=== PATIENT | male | born 1995 | race Caucasian/White ===

== ENCOUNTER 2017-02-23 15:00 | Emergency (ER) | payer MEDICAID ==
[2017-02-23 15:09] VITALS: BP 108/75; RESP 18; TEMP 98
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
--- NOTE | 2017-02-23 16:35 | C.PDOC ---
Time Seen by Provider: 02/23/17 15:56 Chief Complaint (Nursing): Abnormal Skin Integrity Past Medical History Vital Signs: Last Vital Signs Temp 98 F 02/23/17 15:05 Pulse 104 H 02/23/17 15:05 Resp 18 02/23/17 15:05 BP 108/75 02/23/17 15:05 Pulse Ox 98 02/23/17 15:05 Family History: States: Unknown Family Hx - Social History Hx Alcohol Use: Yes Hx Substance Use: No - Immunization History Hx Tetanus Toxoid Vaccination: Yes (2015) Hx Influenza Vaccination: No Hx Pneumococcal Vaccination: No ED Course And Treatment O2 Sat by Pulse Oximetry: 98 Disposition Counseled Patient/Family Regarding: Diagnosis, Need For Followup - Disposition Referrals: Yane Paulson [Medical Doctor] - Disposition: HOME/ ROUTINE Disposition Time: 16:33 Condition: IMPROVED Additional Instructions: Keep steri strips on; they will fall off by themselves. Follow up with your doctor. Instructions: Facial Laceration (ED), Steristrips (ED) Forms: [facility] (Northern Irish), General Discharge Instructions - Clinical Impression Clinical Impression: Laceration of face with delay in treatment
[2017-02-23 16:43] VITALS: PULSE 100
[2017-02-24 09:49] VITALS: O2SAT 98
== END 2017-02-23 16:42 | disposition home or self-care (01) ==
LOC: C.ER 15:00
DX: S01.81XA Laceration without foreign body of other part of head, initial encounter (principal); Y04.0XXA Assault by unarmed brawl or fight, initial encounter

== ENCOUNTER 2018-01-03 20:00 | Emergency (ER) | payer MEDICAID ==
[2018-01-03 20:21] VITALS: RESP 16; TEMP 98
[2018-01-03] MEDS ORDERED: Tetanus/Diphtheria Toxoids 0.5 ml Syringe IM ONE (20:22)
[2018-01-03] MEDS ORDERED: Lidocaine 2% Inj (20ml) INFIL ONE (20:22)
[2018-01-03] MEDS ORDERED: Bacitracin 500 Units/gm Oint Foilpak UD ONE (21:04)
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
[2018-01-03 22:21] VITALS: BP 126/78; PULSE 75; O2SAT 98
--- NOTE | 2018-01-04 08:01 | CT ---
Date of service: 01/03/2018 PROCEDURE: CT HEAD WITHOUT CONTRAST. HISTORY: injury COMPARISON: None available. TECHNIQUE: Axial computed tomography images were obtained through the head/brain without intravenous contrast. Radiation dose: Total exam DLP = 861.4 mGy-cm. This CT exam was performed using one or more of the following dose reduction techniques: Automated exposure control, adjustment of the mA and/or kV according to patient size, and/or use of iterative reconstruction technique. FINDINGS: HEMORRHAGE: No intracranial hemorrhage. BRAIN: No mass effect or edema. No atrophy or chronic microvascular ischemic changes. VENTRICLES: Unremarkable. No hydrocephalus. CALVARIUM: Unremarkable. PARANASAL SINUSES: Unremarkable as visualized. No significant inflammatory changes. MASTOID AIR CELLS: Unremarkable as visualized. No inflammatory changes. OTHER FINDINGS: Frontal soft tissue swelling and subcutaneous gas noted. IMPRESSION: No evidence of acute intracranial hemorrhage or skull fracture. Soft tissue swelling in the frontal region. Preliminary report was submitted by [facility] Radiology.
--- NOTE | 2018-01-04 12:02 | RAD ---
Date of service: 01/03/2018 PROCEDURE: Cervical Spine Radiographs. HISTORY: Pain. COMPARISON: None. FINDINGS: BONES: Alignment maintained. No fracture. Dens Intact. DISC SPACES: Normal. SOFT TISSUES: Normal. No prevertebral soft tissue swelling. OTHER FINDINGS: None. IMPRESSION: No evidence of acute fracture or subluxation.
== END 2018-01-03 22:20 | disposition home or self-care (01) ==
LOC: C.ER 20:00
DX: S01.81XA Laceration without foreign body of other part of head, initial encounter (principal); S16.1XXA Strain of muscle, fascia and tendon at neck level, initial encounter; W19.XXXA Unspecified fall, initial encounter

== ENCOUNTER 2018-01-09 21:56 | Emergency (ER) | payer MEDICAID ==
[2018-01-09 22:13] VITALS: BP 100/64; PULSE 97; TEMP 98.2; O2SAT 97
[2018-01-09] MEDS ORDERED: Epinephrine /Lidocaine HCL 1:100,000/2% 30 ml INJ STA (22:36)
[2018-01-09] MEDS ORDERED: Bacitracin 500 Units/gm Oint Foilpak UD TOP ONE (22:58)
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
[2018-01-09] MEDS ORDERED: Bacitracin 500 Units/gm Oint Foilpak UD ONE (23:02)
[2018-01-09 23:11] VITALS: RESP 20
== END 2018-01-09 23:10 | disposition home or self-care (01) ==
LOC: C.ER 21:56
DX: Z48.02 Encounter for removal of sutures (principal)

== ENCOUNTER 2018-09-23 18:10 | Emergency (ER) | payer MEDICAID ==
[2018-09-23 18:18] VITALS: BP 126/73; PULSE 82; RESP 16; TEMP 98.5; O2SAT 98
--- NOTE | 2018-09-23 20:39 | C.PDOC ---
History Of Present Illness 23 y/o male presents to the ER complaining of sore throat which has been present for the past 1 month. Patient states that his throat feels scratchy and he feels like "something" is in his throat. He reports that he has not been evaluated by a doctor and he has not taken any medications. He notes that he does have some heartburn and acid reflux symptoms. Patient is also complaining of some blood in urine 5 days ago. He notes that he had no blood in urine today.Denies having fever,chills, CP,SOB, nausea, vomiting, and dysuria. Of note, patient has history of smoking cigarettes. Time Seen by Provider: 09/23/18 18:16 Chief Complaint (Nursing): ENT Problem History Per: Patient History/Exam Limitations: no limitations Onset/Duration Of Symptoms: Days Current Symptoms Are (Timing): Still Present Severity: Moderate Past Medical History Reviewed: Historical Data, Nursing Documentation, Vital Signs Vital Signs: Last Vital Signs Temp 98.5 F 09/23/18 18:15 Pulse 82 09/23/18 18:15 Resp 16 09/23/18 18:15 BP 126/73 09/23/18 18:15 Pulse Ox 98 09/23/18 18:15 - Medical History PMH: Asthma, Back Problems (chronic back pain) Surgical History: No Surg Hx Family History: States: No Known Family Hx - Social History Hx Alcohol Use: Yes Hx Substance Use: Yes - Immunization History Hx Tetanus Toxoid Vaccination: Yes (2015) Hx Influenza Vaccination: No Hx Pneumococcal Vaccination: No Review Of Systems Constitutional: Negative for: Fever, Chills ENT: Positive for: Throat Pain Cardiovascular: Negative for: Chest Pain Respiratory: Negative for: Cough, Shortness of Breath Gastrointestinal: Negative for: Nausea, Vomiting Genitourinary: Positive for: Hematuria. Negative for: Dysuria Physical Exam - Physical Exam Appears: Non-toxic, No Acute Distress Skin: Normal Color, Warm, Dry Head: Atraumatic, Normacephalic Eye(s): bilateral: Normal Inspection Ear(s): Bilateral: Normal Nose: Other (no nasal discharge, no enlarged turbinates) Oral Mucosa: Moist Throat: Normal (no swelling or injection), No Erythema, No Exudate, Other (patent airway, no foreign body) Cardiovascular: Rhythm Regular Respiratory: Normal Breath Sounds, No Rales, No Rhonchi, No Wheezing Gastrointestinal/Abdominal: Soft, No Tenderness, No Guarding, No Rebound Neurological/Psych: Oriented x3, Normal Speech ED Course And Treatment O2 Sat by Pulse Oximetry: 98 (RA) Pulse Ox Interpretation: Normal Medical Decision Making Medical Decision Making: Plan: --Rapid Strep Test --Throat Culture --Urinalysis --Urine Culture Disposition Counseled Patient/Family Regarding: Diagnosis, Need For Followup, Rx Given - Disposition Referrals: [facility] [Outside] Disposition: HOME/ ROUTINE Disposition Time: 21:16 Condition: STABLE Prescriptions: Famotidine [Pepcid] 20 mg PO DAILY 14 Days tab Instructions: Acid Reflux (Gastroesophageal Reflux Disease) in Adults, Sore Throat, Adult (DC) Forms: [facility] (Swedish), General Discharge Instructions - Clinical Impression Clinical Impression: Pharyngitis, Acid reflux - PA / SENIOR SPECIALIST / Resident Statement MD/DO has reviewed & agrees with the documentation as recorded. - Scribe Statement The provider has reviewed the documentation as recorded by the Carson Arriaga Provider Attestation All medical record entries made by the Fredrickibe were at my direction and personally dictated by me. I have reviewed the chart and agree that the record accurately reflects my personal performance of the history, physical exam, medical decision making, and the department course for this patient. I have also personally directed, reviewed, and agree with the discharge instructions and disposition.
[2018-09-23 20:48] LABS: URINE BACTERIA OCC (<OCC); URINE BILIRUBIN NEGATIVE (NEGATIVE); URINE BLOOD NEGATIVE (NEGATIVE); URINE CLARITY Clear (Clear); URINE COLOR Yellow (YELLOW); URINE GLUCOSE (UA) NORMAL (Normal); URINE LEUKOCYTE ESTERASE NEG Leu/uL (Negative); URINE PROTEIN NEGATIVE (NEGATIVE)
== END 2018-09-23 21:26 | disposition home or self-care (01) ==
LOC: C.ER 18:10
DX: J02.9 Acute pharyngitis, unspecified (principal); K21.9 Gastro-esophageal reflux disease without esophagitis; F17.210 Nicotine dependence, cigarettes, uncomplicated